=== PATIENT | male | born 1980 | race Caucasian/White ===

== ENCOUNTER 2024-05-29 10:26 | Day surgery (SDC) | payer OTHER ==
[2024-05-29 10:47] VITALS: RESP 18; BMI 28.5
[2024-05-29 13:08] VITALS: TEMP 98
[2024-05-29 13:32] VITALS: BP 136/72; PULSE 68
== END 2024-05-29 13:48 | disposition home or self-care (01) ==
LOC: FASU-ENDO 10:26
PROVIDERS: ATTEND Internal Medicine Gastroenterology
PROC: 0DJD8ZZ Inspection of Lower Intestinal Tract, Via Natural or Artificial Opening Endoscopic (ICD-10-PCS; principal; 2024-05-29 12:55)
DX: Z12.11 Encounter for screening for malignant neoplasm of colon (principal)